=== PATIENT | female | born 1995 ===

== ENCOUNTER 2017-11-30 09:02 | Emergency (ER) | payer BC ==
--- NOTE | 2017-11-30 09:21 | UC ---
Eye Complaint HPI - HPI Summary HPI Summary: This patient is a 22 year old f presenting to [facility] with a chief complaint of left eye swelling when she woke up with this morning. The patient rates the pain 3/10 in severity. Patient reports redness and pain with blinking. Patient denies blurred vision, discharge, and discharge. She states he had some mild pain yesterday but this morning the pain increased and the swelling appeared. - History of Current Complaint Chief Complaint: UCEye Stated Complaint: EYE COMPLAINT Time Seen by Provider: 11/30/17 09:19 Hx Obtained From: Patient Hx Last Menstrual Period: 11/18/17 Onset/Duration: Lasting Days, Still Present Severity Initially: Mild Severity Currently: Mild Pain Intensity: 3 Pain Scale Used: 0-10 Numeric Location of Injury: Eye Lid (lower) Associated Signs And Symptoms: Positive: Swelling. Negative: Drainage (Clear), Drainage (Purulent), Vision Impairment Right, Vision Impairment Left - Allergies/Home Medications Allergies/Adverse Reactions: Allergies Allergy/AdvReac Type Severity Reaction Status Date / Time No Known Allergies Allergy Verified 11/30/17 09:18 Home Medications: Home Medications Control 1 tab PO DAILY 11/30/17 [History Confirmed 11/30/17] PMH/Surg Hx/FS Hx/Imm Hx Previously Healthy: Yes Other History Of: Negative For: HIV, Hepatitis B, Hepatitis C, Anticoagulant Therapy - Surgical History Surgical History: Yes Surgery Procedure, Year, and Place: wisdom tooth removal - Family History Known Family History: Negative: Cardiac Disease, Hypertension, Diabetes, Renal Disease, Respiratory Disease, Seizure Disorder, Blood Disorder - Social History Occupation: Employed Full-time Alcohol Use: Occasionally Substance Use Type: None Smoking Status (MU): Never Smoked Tobacco Review of Systems Constitutional: Negative - fever Eyes: Negative - blurred vision, discharge, and discharge, Other - redness and pain with blinking. All Other Systems Reviewed And Are Negative: Yes Physical Exam - Summary Physical Exam Summary: VITAL SIGNS: Reviewed. GENERAL: Patient is a well-developed and nourished female who is lying comfortable in the stretcher. Patient is not in any acute respiratory distress. HEAD AND FACE: Normocephalic EYES: PERRLA, EOMI x 2.Left eye sty EARS: Hearing grossly intact. MOUTH: Oropharynx within normal limits. NECK: Supple, trachea is midline, no adenopathy, no JVD, no carotid bruit. CHEST: Symmetric, no tenderness at palpation LUNGS: Clear to auscultation bilaterally. No wheezing or crackles. CVS: Regular rate and rhythm, S1 and S2 present, no murmurs or gallops appreciated. ABDOMEN: Soft, non-tender. Bowel sounds are normal. No abdominal abnormal pulsations. EXTREMITIES: Full ROM in all major joints, no edema, no cyanosis or clubbing. NEURO: Alert and oriented x 3. No acute neurological deficits. Speech is normal and follows commands. SKIN: Dry and warm Triage Information Reviewed: Yes Vital Signs: Initial Vital Signs Temp 97.9 F 11/30/17 09:13 Pulse 78 11/30/17 09:13 Resp 18 11/30/17 09:13 BP 128/71 11/30/17 09:13 Pulse Ox 99 11/30/17 09:13 Vital Signs Reviewed: Yes Eye Complaint Course/Dx - Course Course Of Treatment: Patient is a 22-year-old female with chief complaint of pain in the left eye. Physical exam shows that the patient has an sty. Patient was recommended that to use warm compresses and will be given a prescription for erythromycin ointment. Patient will be discharged home with follow-up with PCP. - Differential Dx/Diagnosis Provider Diagnoses: Sty Discharge - Sign-Out/Discharge Documenting (check all that apply): Patient Departure All imaging exams completed and their final reports reviewed: No Studies - Discharge Plan Condition: Stable Disposition: HOME Prescriptions: Erythromycin OPTH OINT* [Erythromycin 0.5% OPTH OINT*] 1 applic LEFT EYE TID #1 tube Patient Education Materials: (ED) Referrals: [facility] [facility] [Outside] Additional Instructions: Take medication as indicated F/U with PCP in 3 days return to the if symptoms worsen - Billing Disposition and Condition Condition: STABLE Disposition: Home - Attestation Statements Document Initiated by Scribe: Yes Documenting Scribe: Brian Mckeon Provider For Whom Benita is Documenting (Include Credential): Jeremy Seth MD Scribe Attestation: Brian Jenkins scribed for Jeremy Seth MD on 11/30/17 at 1952. Scribe Documentation Reviewed: Yes Provider Attestation: The documentation as recorded by the Brian gonzalez accurately reflects the service I personally performed and the decisions made by me, Jeremy Seth MD
[2017-11-30] MEDS ORDERED: Erythromycin OPTH OINT* APPLIC OINT LEFT EYE ONE (09:24)
== END 2017-11-30 09:41 | disposition home or self-care (01) ==
LOC: UCEAST 09:02
DX: H00.016 Hordeolum externum left eye, unspecified eyelid (principal)
CPT/HCPCS: 99202; A9270-GY; G0463